=== PATIENT | female | born 1950 | race Caucasian/White ===

== ENCOUNTER 2020-01-01 11:53 | Inpatient (IN) ==
[2020-01-01 13:49] LABS: INR 1.15; PROTIME 15.3 Seconds (11.0-16.0)
[2020-01-01 13:50] LABS: PTT 30.5 Seconds (22.3-41.8)
[2020-01-01 13:51] LABS: BASO# 0.02 X1000 (0.0-0.2); BASO% 0.2 % (0.0-0.8); EOS# 0.01 X1000 (0.0-0.7); EOS% 0.1 % (0.0-10.0); HEMATOCRIT 27.9 % (37.0-47.0); HEMOGLOBIN 8.1 g/dL (12.0-16.0); IMM GRAN# 0.02 X1000 (0.0-0.04); IMM GRAN% 0.2 % (0.0-0.5); LYMPH# 1.62 X1000 (1.2-3.4); LYMPH% 20.1 % (20.5-51.1); MCH 22.7 PG (27-31); MCV 78.2 FL (81-99); MONO# 0.58 X1000 (0.11-0.59); MONO% 7.2 % (1.7-9.3); NEUT# 5.79 X1000 (1.4-6.5); NEUT% 72.2 % (42.2-75.2); PLT 422 X1000 (130-400); RBC 3.57 XMIL (4.2-5.4); RDW 15.3 % (11.5-14.5); WBC 8.04 X1000 (4.8-10.8)
[2020-01-01 13:53] LABS: OCCULT BLOOD 1 POSITIVE (NEGATIVE)
[2020-01-01 13:55] LABS: AGAP 15; ALBUMIN 4.7 g/dL (3.5-5.0); ALKALINE PHOSPHATASE 119 U/L (32-104); BUN 13 mg/dL (8-22); CALCIUM 9.7 mg/dL (8.8-10.2); CHLORIDE 99 mmol/L (98-107); COSMO 279; CREATININE 0.8 mg/dL (0.5-0.9); ESTIMATED GFR > 60; GLUCOSE 120 mg/dL (70-104); GOT 38 U/L (10-30); GPT 11 U/L (10-36); POTASSIUM 3.6 mmol/L (3.5-5.1); SODIUM 139 mmol/L (136-145); TCO2 25 mmol/L (25-35); TOTAL PROTEIN 7.6 g/dL (6.3-8.3)
--- NOTE | 2020-01-01 14:09 | PROVIDER DOCUMENTATION ---
This chart was entered by Christianne Warren Scribe, acting as scribe for Jen Lozano MD. HPI-Abdominal Pain/GI Problem - General Chief Complaint: GI Bleed Stated Complaint: LEG CRAMPS / BLACK STOOLS Time Seen by Provider: 01/01/20 12:18 Source: patient Allergies/Adverse Reactions: Patient Allergies Allergy/AdvReac Type Severity Reaction Status Date / Time No Known Allergies Allergy Verified 11/26/19 13:46 Home Medications: Home Medication List Medication Instructions Recorded Confirmed Last Taken Type Atorvastatin Calcium 20 mg PO DAILY 10/25/17 01/01/20 05/09/18 08:00 History Clopidogrel Bisulfate [Plavix] 75 mg PO DAILY 10/25/17 01/01/20 05/09/18 08:00 History Iron Carbonyl/Vit C/Vit B12/FA 1 ea PO DAILY #30 tab 08/26/18 01/01/20 Unknown Rx [Icar-C Plus] Polyethylene Glycol 3350 [Miralax] 17 gm PO DAILY #30 powd.pack 08/26/18 01/01/20 Unknown Rx Carvedilol [Coreg] 12.5 mg PO DAILY 09/27/18 01/01/20 Unknown History Atorvastatin Calcium [Lipitor] 20 mg PO DAILY 01/01/20 01/01/20 Unknown History Chlorthalidone 25 mg PO DAILY 01/01/20 01/01/20 Unknown History Dicyclomine [Bentyl] 10 mg PO DAILY 01/01/20 01/01/20 Unknown History Escitalopram Oxalate [Lexapro] 10 mg PO DAILY 01/01/20 01/01/20 Unknown History - History of Present Illness-ABD Nature of Presenting Problems: Pt is a 69 yowf with c/o of black stools for the last 6 months and severe leg muscle cramps. Pt states that the leg cramps are a 10 out of 10 on the pain scale. Pt states that she was seen in Dr. Iglesias's office this morning and was told to come to the ED for further tests. Pt states she had a colonoscopy and a GI endoscopy around 4 - 5 years ago and both were normal. Pt is alert, restless and nontoxic in appearance. Abdominal Pain Onset Location: reports: other (leg muscle cramps) Pain Radiation: reports: no radiation Quality of Pain: reports: cramping Severity in ED: reports: moderate Onset/Duration: reports: gradual, 24 hours ago Timing: reports: still present Activities at Onset: reports: light activity Modifying Factors: improves with: nothing (pt states she has taken nothing for the cramps) Associated Symptoms: reports: muscle aches. denies: constipation, diarrhea, shortness of breath, syncope, weakness Last BM: unsure Dark Stools Present?: reports: black Rectal Bleeding: reports: none Rectal Pain: reports: none Bruising or Bleeding Gums?: No Recently seen or treated by another doctor?: Yes (Dr. Iglesias, this am) Review of Systems - Adult - REVIEW OF SYSTEMS - ADULT Constitutional: denies: chills, fever Eyes: reports: no symptoms reported Ears, Nose, Mouth & Throat: reports: no symptoms reported Cardiovascular: denies: chest pain, syncope Respiratory: denies: cough, shortness of breath Gastrointestinal: reports: other (black stools). denies: abdominal pain, diarrhea Genitourinary: reports: no symptoms reported Musculoskeletal: reports: see HPI, frequent leg cramps, muscle aches Integumentary: reports: no symptoms reported Neurological: denies: dizziness/vertigo, headache/migraines Psychiatric: reports: no symptoms reported Endocrine: reports: no symptoms reported Hematologic/Lymphatic: reports: no symptoms reported Allergic/Immunologic: reports: no symptoms reported All Other Systems: Reviewed and Negative Past History - Adult - PAST MEDICAL HISTORY-ADULT Review of Records: reports: Old Records Reviewed, Nursing Assessment Review, Medications Reviewed, Social history reviewed & non-contributory. Major Childhood Illnesses: reports: denies history Cardiovascular: reports: HTN, hyperlipidemia Respiratory: reports: asthma Gastrointestinal: reports: denies history Obstetrical/Gynecological: reports: denies history Genitourinary: reports: denies history Musculoskeletal: reports: chronic pain, other (chronic pain from tumor). denies: fibromyalgia, other fractures Neurological: reports: cancer/tumor (spine) Psychiatric: reports: depression Endocrine/Immune: reports: denies history Other Conditions: reports: denies history - PRIOR SURGERIES/PROCEDURES Surgical/Procedure History: reports: reviewed, not pertinent, hysterectomy, orthopedic (extremity) (R knee), joint replacement (knee), breast (mastectomy), other (cystoscopy, stents placed femoral/carotid; spinal; morphine pump placement) - IMMUNIZATION STATUS Childhood Immunizations: See Nurse Assessment Flu Vaccine: See Nurse Assessment - FAMILY HISTORY Family History: reviewed, not pertinent - SOCIAL HISTORY Smoking: quit greater than 1 year Substance Use: alcohol Alcohol Use Frequency: occasionally Number of drinks per typical drinking period:: 2 drinks Living Situation: family Physical Exam-General - PHYSICAL EXAM-ADULT Initial Vital Signs Reviewed: Yes - CONSTITUTIONAL General Appearance: appears well, alert, mild distress, thin, anxious, other (restless) - EYES Eyes: PERRL/EOMI, pink conjunctivae - HEAD, EARS, NOSE, MOUTH & THROAT HENMT: normocephalic/atraumatic, moist mucous membranes - NECK Neck: non-tender, full range of motion, supple, normal inspection - RESPIRATORY Respiratory: chest non-tender, lungs clear, no pleuratic chest pain, no respiratory distress - CARDIOVASCULAR Cardiovascular: normal peripheral pulses, regular rate, rhythm, no edema - GASTROINTESTINAL (ABDOMEN) Abdominal Exam: normal bowel sounds, non tender, soft, other (morphine pump in place at LLQ) - MUSCULOSKELETAL Back Exam: normal inspection, no CVA tenderness, no vertebral tenderness Extremity: normal range of motion, normal gait, normal inspection, normal capillary refill, tenderness (bilaterally). negative: deformity, erythema, swelling - SKIN Integumentary: normal turgor, warm/dry, pallor - NEUROLOGIC Neurologic: grossly normal - PSYCHIATRIC Psych/Mental Status: normal thought content, normal thought process, oriented x 3, anxious Progress - PLAN OF CARE/RESULTS Progress/Plan/Lab Results: Vital Signs - 8 hr 01/01/20 11:57 Temperature 97.8 F Pulse Rate 87 Respiratory Rate 16 Blood Pressure 152/72 O2 Sat by Pulse Oximetry 99 Patient with Hgb to 8.1. She has been this low in the past but last H?h was from 2018 and this is a decrease from that. Her occult was grossly +. Will need admission for furhter workup. Spoke to DONNA Segundo for hospitalist who accepted patient for admission. Further orders to be placed by their team. Result Diagrams: 01/01/20 13:20 01/01/20 13:20 - CONSULTS/PCP/HOSPITALIST Notification #1 *Consult/PCP/Hospitalist*: DONNA Segundo for hosp Time Discussed: 14:23 Consult Disposition: Admit Departure - Departure Date of Disposition Decision: 01/01/20 Time of Disposition Decision: 14:22 DIAGNOSIS: GI bleed, Anemia, Occult blood positive stool Disposition: ADMITTED INPATIENT 09 Certified Medical Emergency: Emergent Condition: Stable Referrals and Follow-Ups: Lobo Iglesias DO [Primary Care Provider] - - Critical Care Note This patient required my direct & personal management of CC.: No Attestation - Physician/ ASIA Attestation Patient care was provided by Advanced Practice Provider:: No The physician spent face to face time with patient:: Yes Advanced Practice Provider documentation review:: Supervising physician onsite and consulted in the evaluation and care of this patient. The physician did have a face to face encounter with the patient. This chart was documented by the indicated scribe, (Christianne Warren, Carisa) and accurately reflects the services I performed and decisions made by me, Jen Lozano MD, as attested by the provider's signature.
[2020-01-01] MEDS ORDERED: ZOFRAN IV PRN (16:10)
[2020-01-01] MEDS ORDERED: NS 1,000 ML IV SCH (17:15)
[2020-01-01] MEDS ORDERED: REQUIP PO ONE (17:21)
--- NOTE | 2020-01-01 17:33 | HISTORY AND PHYSICAL ---
CHIEF COMPLAINT: Leg cramps. Black stools. HPI: This is a 69-year-old female with a history of chronic anemia, dark black stools for 6 months, hypertension, spinal cord tumor, who presents to the emergency room complaining of restless legs, leg cramps as well as black stools. She states that the black stools have been present for greater than 6 months. She denies any red stools, any diarrhea. She does take iron and states stools have been black since shortly after starting to take iron. She does report colonoscopy and EGD that was 4 or 5 years ago, both were stated normal. She also states that she has had leg cramps for 24 hours that she has taken no extra medications other than her prescribed home medications which is a morphine pump. She states that she was evaluated by Dr. Lobo Iglesias his office this morning for leg cramps and sent to the emergency room to be further evaluated. She does report a prior diagnosis of restless legs syndrome. PAST MEDICAL HISTORY: 1. Hypertension. 2. Hyperlipidemia. 3. Spinal cord tumor. 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 PAST SURGICAL HISTORY: Right common femoral artery stent, radical mastectomy followed by bilateral breast reconstruction, hysterectomy, back surgery, left pain pump. ALLERGIES: No known drug allergies. HOME MEDICATIONS: A list will be obtained by the nursing staff and once verified will review and restart as appropriate. REVIEW OF SYSTEMS: Discussed with the patient with pertinent positives stated in the HPI. She denied any syncope or dizziness, any chest pain or palpitations, any shortness of breath, cough, fever, chills, any night sweats, recent weight loss or weight gain, any hematuria, dysuria, frequency, urgency, any black or bloody vomitus or bloody stools. SOCIAL HISTORY: She is , has 2 children. She denies any alcohol or illicit drug use. ALLERGIES: No known drug allergies. FAMILY HISTORY: Mother with breast cancer at age 53. She has 1 sister that had colon cancer, 1 had small cell cancer. Her father at age 82 with bone cancer. REVIEW OF SYSTEMS: Discussed with patient with pertinent positives stated in the HPI. She denied any syncope or dizziness, any chest pain or palpitations, any headaches, any nausea, vomiting, diarrhea, constipation, black or bloody vomitus or stools, any hematuria, any bloody stools, any hematuria, dysuria, frequency, urgency. PHYSICAL EXAMINATION: GENERAL: This is a 69-year-old female who is lying on the stretcher in the emergency room in no distress. VITAL SIGNS: Blood pressure is 136/86 with heart rate of 87, respirations are 18, temperature is 97.8 degrees with room air saturations 97-99%. HEENT: Head is normocephalic, atraumatic. Mucous membranes are moist. NECK: Supple with trachea midline. CARDIOVASCULAR: Regular rate and rhythm. S1 and S2 appreciated. Calves are nontender bilateral. PULMONARY: Breath sounds are clear with no increased work of breathing noted. Chest rises and falls symmetric respiration. GASTROINTESTINAL: Abdomen is soft, nontender, nondistended with bowel sounds in all 4 quadrants. GENITOURINARY: No CVA or suprapubic tenderness. NEUROLOGIC: She is alert and oriented x3. SKIN: Warm and dry. LABS: WBC is 8 with hemoglobin 8.1, hematocrit 27.9 and platelets 422,000. Sodium 139, potassium 3.6, BUN 13, creatinine 0.8, glucose of 120. Stool for occult blood was positive. INR is 1.15. ASSESSMENT AND PLAN: 1. Melena. 2. Chronic anemia. 3. Occult positive stool. 4. Hypertension. 5. Hyperlipidemia. 6. Spinal cord tumor status post resecting. 7. Chronic pain on a morphine pain pump. PLAN: The patient will be admitted to the hospital. We will place her on telemetry. We will check a CBC and a CMP in the morning, identify home medications and continue as appropriate. We will give her full liquids at present. The patient will ultimately need to be transferred to [facility] to be evaluated by Gastroenterology. At present there are no beds. She will be admitted to the Med Surg floor with transfer orders to go to [facility] when a bed is available. Further treatments pending hospital course. Plan was discussed with Dr. Hart. Dictated by MEENAKSHI Ricks for Bassem Hart MD cc: MEENAKSHI Ricks MD
[2020-01-01] MEDS: COREG PO SCH (18:07)
[2020-01-01 23:04] LABS: FERRITIN 17 ng/mL (13-150)
--- NOTE | 2020-01-02 06:41 | HISTORY AND PHYSICAL ---
ADDENDUM: Patient seen and examined by myself. Full note dictated and discussed with nurse practitioner. Patient presented to the hospital with increased muscle aches and restless leg issues. Does note that she has had some blood in her stool as well. PLAN: We are going to admit her to the hospital, attempt to control her restless leg. We will follow her blood in her stool. Currently, her hemoglobin and hematocrit is stable. If it worsens, she will need endoscopy. cc: Bassem Hart MD
[2020-01-02 07:05] LABS: BASO# 0.04 X1000 (0.0-0.2); BASO% 0.7 % (0.0-0.8); EOS# 0.03 X1000 (0.0-0.7); EOS% 0.5 % (0.0-10.0); HEMATOCRIT 27.7 % (37.0-47.0); HEMOGLOBIN 8.1 g/dL (12.0-16.0); IMM GRAN# 0.02 X1000 (0.0-0.04); IMM GRAN% 0.4 % (0.0-0.5); LYMPH% 26.7 % (20.5-51.1); MCH 22.8 PG (27-31); MCHC 29.2 g/dL (33-37); MCV 77.8 FL (81-99); MONO# 0.54 X1000 (0.11-0.59); MONO% 9.6 % (1.7-9.3); MPV 8.2 FL (7.4-10.4); NEUT# 3.49 X1000 (1.4-6.5); NEUT% 62.1 % (42.2-75.2); PLT 393 X1000 (130-400); RBC 3.56 XMIL (4.2-5.4); RDW 15.4 % (11.5-14.5); WBC 5.62 X1000 (4.8-10.8)
[2020-01-02 07:46] LABS: AGAP 14; BUN 15 mg/dL (8-22); CALCIUM 9.2 mg/dL (8.8-10.2); CHLORIDE 100 mmol/L (98-107); COSMO 277; CREATININE 0.7 mg/dL (0.5-0.9); ESTIMATED GFR > 60; GLUCOSE 105 mg/dL (70-104); POTASSIUM 3.8 mmol/L (3.5-5.1); SODIUM 138 mmol/L (136-145); TCO2 25 mmol/L (25-35)
[2020-01-02] MEDS: COREG PO SCH (08:31)
[2020-01-02] MEDS ORDERED: NS 1,000 ML IV SCH (08:35)
[2020-01-02] MEDS ORDERED: LEXAPRO PO SCH (09:00)
[2020-01-02] MEDS ORDERED: HYGROTON PO SCH (09:00)
[2020-01-02] MEDS ORDERED: MIRALAX PO SCH (09:00)
[2020-01-02] MEDS ORDERED: ICAR-C PLUS PO SCH (09:00)
[2020-01-02] MEDS: REQUIP PO SCH ×2 (10:21→20:04)
[2020-01-02 13:52] VITALS: BP 155/84
--- NOTE | 2020-01-03 09:53 | DISCHARGE SUMMARY ---
ADMISSION DATE: 01/01/2020 DISCHARGE DATE: 01/02/2020 DISCHARGE DIAGNOSES: 1. Melena, resolved. 2. Chronic anemia, stable with hemoglobin and hematocrit 12.8 and 27. 3. Hypertension. 4. Hyperlipidemia. 5. Spinal cord tumor. 6. Chronic pain on morphine. 7. Restless legs, somewhat improved on Requip. CONSULTATIONS: None. PROCEDURES: None. BRIEF HOSPITAL COURSE: The patient is a 69-year-old pleasant female, who presented to the hospital with melanotic stools. She was admitted to the hospital overnight, did have some significant issues with restless leg while she was in the hospital. This was actually easily improved, although not completely controlled with Requip. Her hemoglobin and hematocrit is stable. Her diet was advanced from clear to full to GI soft without any further changes. She had no further melanotic stools while she was in the hospital. DISPOSITION: The patient can be discharged home. She will follow up outpatient Dr. Thompson or GI of choice. Discussed with her that she needs to avoid aspirin and NSAIDs, ibuprofen. Needs to eat small, more frequent meals, low residue, high-fiber. We discussed the importance that if she has any more bleeding that she would need to return immediately to the ER. However, given that we would not be able to perform a colonoscopy for another day or two, the patient desires to go home which I think is more than reasonable. We will discharge her home to follow her up. cc: Bassem Hart MD
== END 2020-01-02 20:09 | disposition home or self-care (01) | DRG 379 ==
LOC: P.MEDSURG 11:53 → P.ED 11:53
PROVIDERS: ATTEND Family Medicine

== ENCOUNTER 2020-01-03 14:03 | Inpatient (IN) ==
[2020-01-03] MEDS ORDERED: SODIUM CHLORIDE 0.9% INJ ONE ×2 (14:43→23:21)
[2020-01-03] MEDS ORDERED: PROTONIX IV ONE (14:43)
[2020-01-03] MEDS ORDERED: NS 1,000 ML IV ONE (14:43)
--- NOTE | 2020-01-03 14:47 | PROVIDER DOCUMENTATION ---
HPI-General Adult - General Chief Complaint: GI Bleed Stated Complaint: GI BLEED Time Seen by Provider: 01/03/20 14:36 Source: patient Allergies/Adverse Reactions: Patient Allergies Allergy/AdvReac Type Severity Reaction Status Date / Time No Known Allergies Allergy Verified 01/03/20 15:22 Home Medications: Home Medication List Medication Instructions Recorded Confirmed Last Taken Type Clopidogrel Bisulfate [Plavix] 75 mg PO DAILY 10/25/17 01/03/20 01/03/20 History Iron Carbonyl/Vit C/Vit B12/FA 1 ea PO DAILY #30 tab 08/26/18 01/03/20 Unknown Rx [Icar-C Plus] Carvedilol [Coreg] 12.5 mg PO BID 09/27/18 01/03/20 01/03/20 History Chlorthalidone 12.5 mg PO QHS 01/01/20 01/03/20 01/03/20 History Escitalopram Oxalate [Lexapro] 10 mg PO DAILY 01/01/20 01/03/20 01/03/20 History Ropinirole [Requip] 0.5 mg PO BID #60 tab 01/02/20 01/03/20 01/03/20 Rx Aspirin EC 1 tab PO DAILY 01/03/20 01/03/20 01/03/20 History Polyethylene Glycol 3350 [Miralax] 17 gm PO PRN PRN 01/03/20 01/03/20 01/02/20 History - History of Present Illness -Gen Adult Nature of Presenting Problems: Pt. is 69 yof that presents with c/o weakness and dark stools. Pt. was seen Wednesday at [facility] for the same and discharged with follow up to see her GI MD outpatient. Pt. reports she is worse and doesn't feel well. Location of Pain/Injury: reports: generalized. denies: none, head, face, mouth, neck, chest, upper extremity, hand(s), abdomen, back, pelvis, genitalia, lower extremity, feet, upper body, lower body, other Pain Radiation: reports: no radiation. denies: arm(s), back, buttocks, chest, epigastric, feet, groin, jaw, flank (L), legs (lower), LLQ, LUQ, neck, periumbilical, flank (R), RLQ, RUQ, shoulder(s), scapula, scrotal, sternal notch, suprapubic, legs (upper), urethral, vaginal, other Quality of Pain: reports: aching. denies: burning, pressure, tightness Severity: reports: mild. denies: moderate, severe Onset/Duration: reports: gradual, 1 week ago Timing: reports: still present. denies: improving, intermittent, getting worse Context/Activities at Onset: reports: none. denies: light activity, moderate activity, vigorous activity, recent emotional stress, recent physical stress, recent trauma history, possible bad food, cold exposure, eating, out of country travel, rest, sleep, sexual activity, other Modifying Factors: improves with: nothing Associated Symptoms: reports: weakness, other (GI bleeding). denies: denies symptoms, anxiety, arm pain, back/neck pain, chest pain, constipation, cough, diaphoresis, diarrhea, dizziness, EENT symptoms, fatigue, fever/chills, genitourinary problems, headaches, heartburn, joint pain, loss of appetite, malaise, muscle aches, sinus congestion/drainage, nausea, rash, seizure, shortness of breath, sensory/motor loss, pain with inspiration, swelling/mass in abdomen, syncope, vomiting, trouble walking Similar Symptoms Previously?: Yes Recently seen or treated by another doctor?: Yes Review of Systems - Adult - REVIEW OF SYSTEMS - ADULT Constitutional: reports: no symptoms reported Eyes: reports: no symptoms reported Ears, Nose, Mouth & Throat: reports: no symptoms reported Cardiovascular: reports: no symptoms reported Respiratory: reports: no symptoms reported Gastrointestinal: reports: see HPI, rectal bleeding. denies: hematemesis, frequent heartburn, vomiting Genitourinary: reports: no symptoms reported Musculoskeletal: reports: no symptoms reported Integumentary: reports: no symptoms reported Neurological: reports: no symptoms reported Psychiatric: reports: no symptoms reported Past History - Adult - PAST MEDICAL HISTORY-ADULT Review of Records: reports: Old Records Reviewed, Nursing Assessment Review, Medications Reviewed, Social history reviewed & non-contributory. Major Childhood Illnesses: reports: denies history Cardiovascular: reports: HTN, hyperlipidemia Respiratory: reports: asthma Gastrointestinal: reports: denies history Obstetrical/Gynecological: reports: denies history Genitourinary: reports: denies history Musculoskeletal: reports: chronic pain, other (chronic pain from tumor). denies: fibromyalgia, other fractures Neurological: reports: cancer/tumor (spine) Psychiatric: reports: depression Endocrine/Immune: reports: denies history Other Conditions: reports: denies history - PRIOR SURGERIES/PROCEDURES Surgical/Procedure History: reports: reviewed, not pertinent, hysterectomy, orthopedic (extremity) (R knee), joint replacement (knee), breast (mastectomy), other (cystoscopy, stents placed femoral/carotid; spinal; morphine pump placement) - IMMUNIZATION STATUS Childhood Immunizations: See Nurse Assessment Flu Vaccine: See Nurse Assessment - FAMILY HISTORY Family History: reviewed, not pertinent - SOCIAL HISTORY Smoking: denies Physical Exam-General - PHYSICAL EXAM-ADULT Initial Vital Signs Reviewed: Yes - CONSTITUTIONAL General Appearance: alert, moderate distress, thin. negative: anxious, obtunded, combative - EYES Eyes: PERRL/EOMI, pink conjunctivae - HEAD, EARS, NOSE, MOUTH & THROAT HENMT: normocephalic/atraumatic, moist mucous membranes - NECK Neck: non-tender, full range of motion, supple, normal inspection - RESPIRATORY Respiratory: lungs clear, normal breath sounds - CARDIOVASCULAR Cardiovascular: normal peripheral pulses, regular rate, rhythm - GASTROINTESTINAL (ABDOMEN) Abdominal Exam: normal bowel sounds, non tender, soft - GENITOURINARY Female Genitalia/Pelvic Exam: deferred Rectal Exam: deferred Hemoccult Exam: heme positive stool (Heme stool Positive on Wednesday at [facility]) - LYMPHATIC Lymphatic: no adenopathy - MUSCULOSKELETAL Back Exam: normal inspection, no CVA tenderness, no vertebral tenderness Extremity: normal range of motion, non-tender, normal inspection Peripheral Pulses: radial (R): 2+, radial (L): 2+ - SKIN Integumentary: normal color, normal turgor, warm/dry - NEUROLOGIC Neurologic: grossly normal, no motor/sensory deficits - PSYCHIATRIC Psych/Mental Status: normal mood/affect, normal thought content, normal thought process, oriented x 3. negative: anxious, paranoid, tearful Progress - PLAN OF CARE/RESULTS Progress/Plan/Lab Results: Vital Signs - 8 hr 01/03/20 14:19 Temperature 98.1 F Pulse Rate 65 Respiratory Rate 18 Blood Pressure 108/65 O2 Sat by Pulse Oximetry 100 Orders Category Date Time Status Saline Loc NOW Care 01/03/20 14:42 Ordered CHEST-PORTABLE [RAD] Stat Exams 01/03/20 14:42 Ordered CBC WITH ELECTRONIC DIFF [HEME] Stat Lab 01/03/20 14:42 Uncollected COMPREHENSIVE METABOLIC PANEL [CHEM] Stat Lab 01/03/20 14:42 Uncollected TYPE & SCREEN [BBK] Stat Lab 01/03/20 14:43 Uncollected URINALYSIS W/POSS RFLX CULT [URINALYSIS] Stat Lab 01/03/20 14:42 Uncollected 0.9% Sodium Chloride Inj [Ns] 1,000 ml Med 01/03/20 14:43 Ordered IV KVO Pantoprazole [Protonix] Med 01/03/20 14:43 Once 40 mg IV NOW ONE Sodium Chloride 0.9% Med 01/03/20 14:43 Once 10 ml INJ NOW ONE EKG [EKG] Stat Ther 01/03/20 14:42 Ordered Result Diagrams: 01/03/20 15:01 01/03/20 15:01 - CONSULTS/PCP/HOSPITALIST Notification #1 *Consult/PCP/Hospitalist*: Dr. Mallory Time Discussed: 18:02 Reason/Comments: Consult Consult Disposition: other (He will see her in the morning.) #2 Consult: Monica mckeon hospitilist Time Discussed: 18:02 Reason/Comments: Admission Consult Disposition: Will see in ED, Admit Departure - Departure Date of Disposition Decision: 01/03/20 Time of Disposition Decision: 17:58 DIAGNOSIS: GI bleed Qualifiers: GI bleed type/associated pathology: unspecified gastrointestinal hemorrhage type Qualified Code(s): K92.2 - Gastrointestinal hemorrhage, unspecified Anemia Qualifiers: Anemia type: unspecified type Qualified Code(s): D64.9 - Anemia, unspecified Disposition: ADMITTED INPATIENT 09 Certified Medical Emergency: Emergent Condition: Stable Referrals and Follow-Ups: Lobo Iglesias DO [Primary Care Provider] - - Critical Care Note This patient required my direct & personal management of CC.: No Attestation - Physician/ ASIA Attestation Patient care was provided by Advanced Practice Provider:: Yes Advanced Practice Provider:: Zhen Rowland Advanced Practice Provider documentation review:: The Mid-level provider documentation, treatment plan and medical decision making was reviewed by the physician who agrees with all treatment and medical decision making by the [facility]. The physician spent face to face time with patient:: No Advanced Practice Provider documentation review:: Supervising physician onsite and consulted in the evaluation and care of this patient. The physician did not have a face to face encounter with the patient.
[2020-01-03 15:26] LABS: BASO# 0.03 X1000 (0.0-0.2); BASO% 0.4 % (0.0-0.8); EOS# 0.04 X1000 (0.0-0.7); EOS% 0.6 % (0.0-10.0); HEMATOCRIT 28.1 % (37.0-47.0); HEMOGLOBIN 8.2 g/dL (12.0-16.0); IMM GRAN# 0.02 X1000 (0.0-0.04); IMM GRAN% 0.3 % (0.0-0.5); LYMPH# 1.49 X1000 (1.2-3.4); LYMPH% 22.3 % (20.5-51.1); MCH 23.1 PG (27-31); MCHC 29.2 g/dL (33-37); MCV 79.2 FL (81-99); MONO# 0.65 X1000 (0.11-0.59); MONO% 9.7 % (1.7-9.3); MPV 8.9 FL (7.4-10.4); NEUT# 4.45 X1000 (1.4-6.5); NEUT% 66.7 % (42.2-75.2); PLT 422 X1000 (130-400); RBC 3.55 XMIL (4.2-5.4); RDW 15.5 % (11.5-14.5); WBC 6.68 X1000 (4.8-10.8)
[2020-01-03 15:42] LABS: ALB/GLOB RATIO 1.4; ALBUMIN 4.2 g/dL (3.5-5.0); CALCIUM 9.5 mg/dL (8.8-10.2); CREATININE 1.2 mg/dL (0.5-0.9); POTASSIUM 3.6 mmol/L (3.5-5.1); TOTAL BILIRUBIN 0.38 mg/dL (0.20-1.00); TOTAL PROTEIN 7.1 g/dL (6.3-8.3)
--- NOTE | 2020-01-03 17:08 | Diag Imaging Result Doc PS360 ---
EXAM: CHEST-PORTABLE INDICATION: admit TECHNIQUE: One view COMPARISON: 11/26/2019 FINDINGS: The airspace infiltrate in the left midlung seen on the previous study appears to have resolved by plain radiograph. Otherwise, the lungs are grossly clear. There is no discrete pleural fluid collection or pneumothorax. The cardiomediastinal silhouette and central vasculature are grossly unremarkable. IMPRESSION: No evidence of acute pathology by plain radiograph. Electronically signed by Harshil Mcgarry 01/03/2020 5:06 PM
[2020-01-03 17:36] LABS: URINE SOURCE CATH
[2020-01-03 17:48] LABS: BILIRUBIN URINE NEGATIVE (NEGATIVE); BLOOD URINE TRACE (NEGATIVE); COLOR YELLOW; GLUCOSE URINE NEGATIVE (NEGATIVE); KETONE URINE NEGATIVE (NEGATIVE); LEUKOCYTES URINE NEGATIVE (NEGATIVE); NITRITE URINE NEGATIVE (NEGATIVE); PH URINE 6.5; PROTEIN URINE TRACE mg/dL (NEGATIVE); SP GRAVITY URINE 1.027; TURBIDITY URINE CLEAR (CLEAR); UROBILINOGEN URINE NORMAL (NORMAL)
[2020-01-03 17:49] LABS: UR EPITHELIAL CELLS <10 /HPF (<10); URINE BACTERIA NEGATIVE /HPF; URINE RBC <10 /HPF (<10); URINE WBC <10 /HPF (<10)
[2020-01-03] MEDS ORDERED: MIRALAX PO PRN (19:38)
--- NOTE | 2020-01-03 22:24 | HISTORY AND PHYSICAL ---
ADDENDUM: The patient has a history of CAD. She is on aspirin and Plavix, also iron. She is a Lobo Harris patient, but she is not one of his critical access hospital patients. In any case, she had persistent dizziness, weakness, and dark stools. Her hemoglobin and hematocrit is 8 and 28, which is stable from where it was previously. She was just discharged from [facility] with an hemoglobin and hematocrit that was stable. In any case, so she came back in and now she is being admitted. She has seen Dr. Walker before apparently. She will be admitted for GI bleed. We will put her on Protonix and we will continue to follow closely. We will keep her NPO after midnight and consult Dr. Walker. cc: Alex Miranda MD MTD
--- NOTE | 2020-01-03 22:29 | HISTORY AND PHYSICAL ---
CHIEF COMPLAINT: Black stools. HISTORY OF PRESENT ILLNESS: This is a 69-year-old female who was recently admitted on 01/01/2020 at [facility] and was discharged on 01/02/2020. She was supposed to follow up with GI as an outpatient, but the patient had increased weakness and increasing dark stools. She did not make it to see the GI doctor outpatient, so she came back in to the emergency room. Luckily her vital signs are stable, and her hemoglobin and hematocrit are actually higher than they were at the time of discharge, but we will place the patient on the medical floor for further evaluation and treatment . She does appear to be volume depleted. PAST MEDICAL HISTORY: Hypertension, hyperlipidemia, spinal cord tumor, GI bleed. PREVIOUS SURGICAL HISTORY: Right common femoral artery stent, radical mastectomy followed by breast reconstruction, hysterectomy, back surgery, left pain pump. ALLERGIES: No known drug allergies. SOCIAL HISTORY: with 2 children. No alcohol, tobacco or illicit drugs. FAMILY HISTORY: Mother with breast cancer at 53. One sister had colon cancer, and one had small cell lung cancer. Her father at age 82 with bone cancer. HOME MEDICATIONS: Aspirin 81 mg p.o. daily, Plavix 75 mg p.o. daily, carvedilol 12.5 mg p.o. b.i.d., chlorthalidone 12.5 p.o. at bedtime, Lexapro 10 mg p.o. daily, Icar-C Plus 1 p.o. daily, MiraLAX 17 grams p.o. p.r.n., ropinirole 0.5 mg p.o. b.i.d. REVIEW OF SYSTEMS: A 14-point review of systems was conducted with the patient. She has a complaint of occasional abdominal cramps, but she has not had any abdominal pain today. All other pertinent positives are listed above in the HPI. All other systems are reviewed and found to be negative PHYSICAL EXAMINATION: VITAL SIGNS: Temperature 98.1, pulse 65, respirations 15, blood pressure 124/64, oxygen saturation 98% on room air. GENERAL: A pleasant 69-year-old female lying in the ER stretcher. Answers all questions appropriately. She is alert and oriented x3. HEENT: Head is atraumatic, normocephalic. Pupils equal, round and reactive to light. Extraocular eye movement is intact. Sclerae are anicteric. Conjunctivae are pale. Oral mucosa is mildly dry. NECK: Supple. No JVD. No thyromegaly. Trachea is midline. No cervical lymphadenopathy. CARDIAC: S1 and S2 appreciated. No murmurs, gallops or rubs. LUNGS: Clear to auscultation. Bilaterally. No rhonchi, wheezes or rales. Symmetrical rise and fall with respirations. ABDOMEN: Soft, nondistended, nontender. Bowel sounds present in all 4 quadrants, normoactive. No pulsatile masses. No organomegaly. EXTREMITIES: No clubbing, cyanosis, or edema, 2+ pedal pulses bilaterally. GENITOURINARY: No bladder distention. Patient voids. Otherwise deferred. NEUROLOGIC: Alert and oriented x3. Cranial nerves II-XII grossly intact. DIAGNOSTIC DATA: Chest x-ray: No evidence of acute pathology. LABORATORY DATA: WBCs 6.68, hemoglobin 8.2, hematocrit 28.1, platelet count 422. Sodium 134, potassium 3.6, chloride 94, carbon dioxide 28, BUN 20, creatinine 1.2, glucose 119. Urine unremarkable. ASSESSMENT: 1. Gastrointestinal bleed. 2. Acute kidney injury. 3. Chronic anemia. 4. Hypertension, now normotensive. PLAN: 1. Admit patient to the medical floor. Will consult Dr. Walker. 2. Protonix 40 mg IV every 12 hours. 3. Normal saline at 60 mL/hr. 4. N.p.o. after midnight. 5. We will hold her aspirin and Plavix for now. 6. Further recommendations pending patient's clinical course. Dictated by MEENAKSHI Panda for Alex Miranda MD cc: MEENAKSHI Panda MD
[2020-01-03] MEDS ORDERED: ZOFRAN IV PRN (23:21)
[2020-01-03] MEDS: HYGROTON PO SCH (23:47)
[2020-01-03] MEDS: COREG PO SCH (23:47)
[2020-01-03] MEDS: REQUIP PO SCH (23:47)
[2020-01-04] MEDS: PROTONIX IV SCH ×3 (00:32→23:34)
[2020-01-04] MEDS: NS 1,000 ML IV SCH ×3 (04:46→17:43)
--- NOTE | 2020-01-04 06:00 | EKG Report ---
Test Performed on : 01/04/2020 04:20:24 AM Test Reason : admit Blood Pressure : / mmHG Vent. Rate : 064 BPM Atrial Rate : 064 BPM P-R Int : 220 ms QRS Dur : 090 ms QT Int : 420 ms P-R-T Axes : 041 004 035 degrees QTc Int : 433 ms Sinus rhythm. with 1st degree AV block. Possible Anterior infarct (cited on or before 04-MAY-2018) Abnormal ECG When compared with ECG of 12-MAY-2018 06:40, Nonspecific T wave abnormality no longer evident in Inferior leads Nonspecific T wave abnormality, improved in Lateral leads Confirmed by Jorge Turner MD ([id number]) on 01/04/2020 8:10:48 AM
[2020-01-04 06:53] LABS: BASO# 0.02 X1000 (0.0-0.2); BASO% 0.4 % (0.0-0.8); EOS# 0.15 X1000 (0.0-0.7); EOS% 2.8 % (0.0-10.0); HEMOGLOBIN 7.3 g/dL (12.0-16.0); LYMPH# 1.89 X1000 (1.2-3.4); LYMPH% 34.9 % (20.5-51.1); MCH 23.2 PG (27-31); MCHC 29.2 g/dL (33-37); MCV 79.6 FL (81-99); MONO# 0.62 X1000 (0.11-0.59); MONO% 11.4 % (1.7-9.3); MPV 8.5 FL (7.4-10.4); NEUT# 2.74 X1000 (1.4-6.5); NEUT% 50.5 % (42.2-75.2); PLT 354 X1000 (130-400); RBC 3.14 XMIL (4.2-5.4); RDW 15.4 % (11.5-14.5); WBC 5.42 X1000 (4.8-10.8)
[2020-01-04 07:15] LABS: CALCIUM 8.8 mg/dL (8.8-10.2)
[2020-01-04] MEDS ORDERED: DIPRIVAN 1% ONE (08:02)
[2020-01-04] MEDS ORDERED: XYLOCAINE-MPF 2% ONE (08:03)
[2020-01-04] MEDS ORDERED: ROBINUL ONE (08:03)
--- NOTE | 2020-01-04 09:08 | PROGRESS NOTE ---
DATE: 01/04/2020 SUBJECTIVE: The patient reports feeling better. No more episodes of dark stool this morning. She is on n.p.o. for an EGD today. OBJECTIVE: Vital Signs: Temperature is 98.1, heart rate 67, respiratory rate 15, blood pressure 102/49, O2 saturation 96% on room air. General examination: This is a 69-year-old female, lying in bed in no acute distress. Cardiovascular exam: S1, S2 heard. No murmurs, gallops, or rubs. Regular rate and rhythm. Respiratory exam: Clear bilaterally to auscultation. No work of breathing or using accessory muscles. Abdomen: Soft, nontender to palpation. Bowel sounds present. No organomegaly. Extremities: No clubbing, cyanosis or edema. Peripheral pulses present in both legs. Neurological exam: Patient is alert and oriented x3. Moves 4 extremities. LABORATORY DATA: Hemoglobin is this morning 7.3 and yesterday was 8.2 with a creatinine of 1.0 today. Normal BUN. ASSESSMENT AND PLAN: 1. Gastrointestinal bleeding. That is the reason why this patient was admitted to the hospital. At this point, she is awaiting esophagogastroduodenoscopy this morning. We will see what it shows. We will transfuse blood if hemoglobin is 7 or below. We will continue to monitor this patient closely. 2. Acute kidney injury. Creatinine is almost back to normal. I think it could be related to the gastrointestinal bleeding and dehydration. We will continue to monitor. We will continue with intravenous fluids. 3. Anemia of chronic disease. Stable. At this time, we will continue to monitor complete blood count daily. 4. Hypertension. The patient is now normotensive so, considering that she has gastrointestinal bleeding, we are not going to restart any blood pressure medication unless the blood pressure started getting higher than 160s or 170s. cc: Tyson Pedroza MD
--- NOTE | 2020-01-04 09:09 | ENDOSCOPY OPERATIVE NOTE ---
[facility] ENDOSCOPY OPERATIVE NOTE , PATIENT: Treasure Morrissey ADMISSION DATE: 01/04/2020 [facility]#: [id number] [facility] 1950 [id number] EGD PROCEDURE REPORT PROCEDURE DATE: 01/04/2020 SURGEON: Hugh Walker MD STATUS: inpatient CURTAIN INSPECTOR: Leonial Rivera and Monica Vickers PREOPERATIVE DIAGNOSIS: The patient is a 69 yr old female here for an EGD due to anemia secondary to chronic blood loss and History of melena.. PROCEDURE PERFORMED: EGD w/ biopsy MEDICATIONS: Per Anesthesia TOPICAL ANESTHETIC: none CONSENT: The patient understands the risks and benefits of the procedure and understands that these r isks include, but are not limited to: sedation, allergic reaction, infection, perforation and/or bleeding. Alternative means of evaluation and treatment include, among others: physical exam, x-rays, and/or surgical intervention. The patient elects to proceed with this endoscopic procedure. HISORY AND PHYSICAL: 01/04/2020 DESCRIPTION OF PROCEDURE: During intra-op preparation period all mechanical and medical equipment was checked for proper function. Hand hygiene and appropriate measures for infection prevention was taken. After the risks, benefits and alternatives of the procedure were thoroughly explained, Informed consent was verified, confirmed and timeout was successfully executed by the treatment team. The patient was anesthetized with topical anesthesia and the [id number] ([id number]) endoscope was introduced through the mouth and advanced to the second portion of the duoden um. Retroflexion was performed in the stomach and revealed no abnormalities. The gastroscope was then slowly withdraw n and removed. ESOPHAGUS: The mucosa of the esophagus appeared normal. STOMACH: Moderate gastritis (inflammation) was found in the gastric antrum. Multiple biopsies were p erformed using cold forceps. Sample sent for histology. The stomach otherwise appeared normal. DUODENUM: The duodenal mucosa showed no abnormalities. SPECIMENS REMOVED: No ADVERSE EVENTS: There were no complications. POSTOPERATIVE DIAGNOSIS: 1. The mucosa of the esophagus appeared normal 2. Gastritis (inflammation) was found in the gastric antrum; multiple biopsies were performed 3. The stomach otherwise appeared normal 4. The duodenal mucosa showed no abnormalities RECOMMENDATIONS: 1. Omeprazole (Prilosec) 40mg PO daily 2. Avoid non-steroid anti-inflammatory drugs 3. Resume pre-procedure medications 4. Follow-up biopsy results in 2 weeks 5. Follow up with GI Doctor in 2 months 6. Transfer to floor REPEAT EXAM: Hugh Walker MD eSigned: Hugh Walker MD 01/04/2020 9:08 AM cc: Lobo Iglesias DO PATIENT NAME: Ghanshyam Treasure L MR#: [id number]
[2020-01-04] MEDS: ICAR-C PLUS PO SCH (10:41)
[2020-01-04] MEDS: REQUIP PO SCH ×2 (10:41→22:01)
[2020-01-04] MEDS: LEXAPRO PO SCH (10:42)
[2020-01-04] MEDS: COREG PO SCH ×2 (10:42→22:01)
--- NOTE | 2020-01-04 15:07 | GASTROENTEROLOGY CONSULTATION ---
DATE: 01/04/2020 REASON FOR CONSULTATION: Melena, anemia. HISTORY OF PRESENT ILLNESS: This is a 69-year-old female, who was recently admitted several days ago at [facility]. She was discharged and recommended to follow up with GI. We have seen the patient in the past. She was last seen in our office in May 2019. At that time, she had a colonoscopy in March 2019. Indications for diarrhea and weight loss. She had findings of several polyps in the hepatic flexure. Pathology showed tubular adenomatous polyp and hyperplastic polyp. No evidence of colitis or microscopic colitis. No histopathologic abnormalities were seen under biopsy. She was recommended to start MiraLAX for possible overflow diarrhea related to constipation. Patient reports that she has noticed dark stools over the last 2 weeks. She has had some dizziness. No reported chest pain or shortness of breath. No reported abdominal pain. She does have a morphine pain pump in the lower abdomen for chronic back pain. PAST MEDICAL HISTORY: Hypertension, hyperlipidemia, history of spinal cord tumor, history of breast cancer. PAST SURGICAL HISTORY: Right common femoral artery stent, mastectomy and breast reconstruction, hysterectomy, back surgery, left pain pump. ALLERGIES: No known drug allergies. HOME MEDICATIONS: 1. Aspirin daily. 2. Coreg 12.5 mg twice a day. 3. Chlorthalidone 12.5 mg every night. 4. Plavix 75 mg daily. 5. Lexapro 10 mg daily. 6. Iron +1 daily. 7. MiraLAX as needed. 8. Requip 0.5 mg twice a day. SOCIAL HISTORY: She is . She has 2 children. No reported tobacco or alcohol use. REVIEW OF SYSTEMS: Per history of present illness. PHYSICAL EXAMINATION: Vital Signs: Temperature 98.1 degrees, pulse 70, respirations 18, blood pressure 100/51. General: Patient was awake and alert. No acute distress. HEENT: Normocephalic, atraumatic. Pupils equal, round, reactive to light. Sclerae nonicteric. Respiratory: Lung sounds essentially clear. Cardiovascular: Regular rate and rhythm. Abdomen: Soft, nontender. She does have pain pump to the left lower abdomen. DIAGNOSTIC RESULTS: Laboratory: Hematology: WBC 5.42, hemoglobin 7.3, hematocrit 25.0, MCV 79.6, platelets 354. Chemistry: Sodium 135, potassium 4.0, chloride 97, CO2 of 27. BUN 18, creatinine 1.0 glucose 102, calcium 8.0. My evaluation was done prior to her EGD today. X-rays: EGD report was reviewed with Dr. Walker. Esophagus was normal. She had moderate gastritis and multiple biopsies were taken. ASSESSMENT AND PLAN: 1. Anemia. 2. Gastritis. 3. Melena. 4. History of colon polyps with last colonoscopy in March of 2019. Continue PPI. She has had a colonoscopy within the last year. She will most likely need a small- bowel follow-through for further evaluation, but we will treat her gastritis first, and follow up with her in the office after discharge. Avoid NSAIDs. Again continue PPI 40 mg daily. Patient had EGD procedure today by Dr. Walker. Thank you for this consultation. Dictated by MEENAKSHI Barone for Hugh Walker MD cc: MEENAKSHI Guerrero MD
[2020-01-04] MEDS: HYGROTON PO SCH (22:00)
[2020-01-05 06:50] LABS: BASO# 0.04 X1000 (0.0-0.2); BASO% 0.9 % (0.0-0.8); EOS# 0.18 X1000 (0.0-0.7); EOS% 4.1 % (0.0-10.0); HEMATOCRIT 24.7 % (37.0-47.0); HEMOGLOBIN 7.2 g/dL (12.0-16.0); LYMPH# 1.51 X1000 (1.2-3.4); LYMPH% 34.2 % (20.5-51.1); MCH 23.2 PG (27-31); MCHC 29.1 g/dL (33-37); MCV 79.4 FL (81-99); MONO% 15.9 % (1.7-9.3); MPV 8.4 FL (7.4-10.4); NEUT# 1.98 X1000 (1.4-6.5); NEUT% 44.9 % (42.2-75.2); PLT 340 X1000 (130-400); RBC 3.11 XMIL (4.2-5.4); RDW 15.5 % (11.5-14.5); WBC 4.41 X1000 (4.8-10.8)
[2020-01-05 07:19] LABS: AGAP 9; BUN 12 mg/dL (8-22); CALCIUM 8.9 mg/dL (8.8-10.2); CHLORIDE 101 mmol/L (98-107); COSMO 277; CREATININE 0.9 mg/dL (0.5-0.9); ESTIMATED GFR > 60; GLUCOSE 99 mg/dL (70-104); POTASSIUM 3.6 mmol/L (3.5-5.1); SODIUM 139 mmol/L (136-145); TCO2 29 mmol/L (25-35)
[2020-01-05] MEDS: ICAR-C PLUS PO SCH (08:32)
[2020-01-05] MEDS: LEXAPRO PO SCH (08:32)
[2020-01-05] MEDS: COREG PO SCH ×2 (08:33→20:23)
[2020-01-05] MEDS: REQUIP PO SCH ×2 (08:33→20:23)
[2020-01-05] MEDS: SODIUM CHLORIDE 0.9% 10 ML ONE (13:28)
[2020-01-05] MEDS: PROTONIX IV SCH ×2 (13:29→23:49)
[2020-01-05] MEDS ORDERED: CITRATE OF MAGNESIA PO ONE (14:00)
--- NOTE | 2020-01-05 15:56 | PROGRESS NOTE ---
DATE: 01/05/2020 I went to see this patient in the morning and she was stable. I decided to discharge this patient. Daughter expressed her concerns about the patient feeling weak. Hemoglobin has been 7.2 this morning. There has been communication between Dr. Walker and the patient and family. It has been decided that this patient is going to stay over the weekend. She is going to receive 2 units of blood. They are going to perform a small bowel series to rule out any possible bleeding on this patient. In that regard, we are going to cancel this discharge and we will continue to monitor this patient closely. cc: Tyson Pedroza MD
--- NOTE | 2020-01-05 19:59 | GASTROENTEROLOGY PROGRESS NOTE ---
DATE: 01/05/2020 SUBJECTIVE: The patient reports being weak and fatigued. She has had a drop in her hemoglobin and hematocrit today. By intake and output report, there have been no signs of active bleeding. She had an EGD on 01/04/2020 that showed normal esophagus, gastritis, and normal duodenum. She was instructed to continue her PPI 40 mg daily, and avoid NSAIDs. Pathology is pending. OBJECTIVE: Vital Signs: Temperature 98.4 degrees, pulse 73, respirations 18, blood pressure 117/54. General: Patient is awake and alert, in no acute distress. She is complaining of weakness in her legs. Her daughter states she had some stool leakage. We have done a colonoscopy in March 2019. Indications were for diarrhea and weight loss, and findings showed polyps in the hepatic flexure, with pathology showing tubular adenomatous polyps and hyperplastic polyp. There was no evidence of colitis or microscopic colitis, and pathology showed no histopathologic abnormalities. At that time, she was recommended to take MiraLAX for possible overflow diarrhea related to constipation. OBJECTIVE: Vital signs: Temperature 98.4 degrees, pulse 73, respirations 18, blood pressure 117/54. General: The patient is awake and alert, in no acute distress. Her daughter is at the bedside. Abdomen: Soft, nontender. Positive bowel sounds. LABORATORY: Hematology: WBC 4.41, hemoglobin 7.2, hematocrit 24.7, MCV 79.4, MCH 23.2, platelet 340,000. Chemistry: Sodium 139, potassium 3.6, chloride 101, CO2 29, BUN 12, creatinine 0.9, glucose 99, calcium 8.9, total bilirubin 0.38, AST 31, ALT 10, alkaline phosphatase 97. As noted, EGD showed gastritis, otherwise normal esophagus and normal duodenum. Pathology is pending. ASSESSMENT: 1. Anemia. 2. Recent melena. 3. Esophagogastroduodenoscopy findings of gastritis. 4. History of colon polyps with last colonoscopy in March 2019, with no evidence of colitis. PLAN: Continue proton pump inhibitor. She has had esophagogastroduodenoscopy and colonoscopy now within the last year. We will proceed with a small-bowel follow-through for further workup. Avoid nonsteroidal anti-inflammatory medications. Unfortunately, her Plavix could cause some slow bleeding in the gastrointestinal tract. We will transfuse 2 units of packed red blood cells today. Further plans will be made according to findings. We will continue to monitor for signs of active bleeding and monitor hemoglobin and hematocrit. I have discussed this case with Dr. Walker. The patient was also seen by Dr. Walker. At that time, we went back in to speak to the daughter and she was no longer in the room. I believe she had an appointment to go to. Further plans will be made as needed. I will try to call the daughter on the phone. Dictated by MEENAKSHI Barone for Hugh Walker MD cc: MEENAKSHI Guerrero MD
[2020-01-05] MEDS: HYGROTON PO SCH (20:23)
[2020-01-06 07:43] LABS: BASO# 0.03 X1000 (0.0-0.2); BASO% 0.6 % (0.0-0.8); EOS# 0.31 X1000 (0.0-0.7); EOS% 6.7 % (0.0-10.0); HEMOGLOBIN 10.6 g/dL (12.0-16.0); LYMPH# 1.23 X1000 (1.2-3.4); LYMPH% 26.5 % (20.5-51.1); MCH 25.1 PG (27-31); MCHC 31.2 g/dL (33-37); MCV 80.6 FL (81-99); MONO# 0.62 X1000 (0.11-0.59); MONO% 13.3 % (1.7-9.3); MPV 8.9 FL (7.4-10.4); NEUT# 2.46 X1000 (1.4-6.5); NEUT% 52.9 % (42.2-75.2); PLT 350 X1000 (130-400); RBC 4.22 XMIL (4.2-5.4); RDW 16.1 % (11.5-14.5); WBC 4.65 X1000 (4.8-10.8)
[2020-01-06 08:25] LABS: POTASSIUM 3.3 mmol/L (3.5-5.1)
--- NOTE | 2020-01-06 10:15 | DISCHARGE SUMMARY ---
ADMISSION DATE: 01/03/2020 DISCHARGE DATE: 01/05/2020 PRIMARY CARE PROVIDER: Dr. Lobo Iglesias. CONSULTATION: Dr. Walker. PERTINENT PROCEDURE: EGD with biopsy. DISCHARGE DIAGNOSES: 1. Gastritis. The patient will start Prilosec daily. The patient will avoid nonsteroidal anti- inflammatory drugs. Follow up with her biopsy results in 2 weeks, as well as her Gastroenterology doctor in 2 months. 2. Gastrointestinal bleed. Hemoglobin and hematocrit stable. She did not require any transfusions. 3. Acute kidney injury, resolved. 4. Chronic anemia, stable. 5. Hypertension, stable. HOSPITAL COURSE: Briefly, Ms. Morrissey is a 69-year-old female, who was recently admitted on 01/01/2020 at [facility] and discharged on 01/02/2020. She was supposed to follow up with GI as an outpatient, but she had increased weakness and dark stools. She did not make an appointment to see the GI doctor as an outpatient, so she came back to the ED. Her vital signs were stable. Her hemoglobin and hematocrit were higher than the time of her discharge. She was placed on the medical floor. She was evaluated by Gastroenterology. The next day she underwent an endoscopy that showed gastritis. She was started on a proton pump inhibitor. She has been educated to avoid NSAIDs. She will resume her preprocedure medications. Follow up on her biopsy results in 2 weeks, as well as her GI doctor in 2 months. Her hemoglobin and hematocrit and hemodynamics have remained stable. She will be discharged home. VITAL SIGNS: At time of her discharge, temperature is 98 degrees, heart rate 68, respirations 16, blood pressure 135/67, O2 is 98% on room air. DISCHARGE DIET: Healthy heart. DISCHARGE MEDICATIONS: 1. Chlorthalidone 12.5 mg p.o. at bedtime. 2. Aspirin 81 mg p.o. daily. 3. Coreg 12.5 mg p.o. b.i.d. 4. Lexapro 10 mg p.o. daily. 5. MiraLAX 17 g p.o. p.r.n. 6. Plavix 75 mg p.o. daily. 7. Carafate 1 g p.o. t.i.d. 8. Icar C one tab p.o. b.i.d. 9. Protonix 40 mg p.o. daily. 10. Requip 0.5 mg p.o. b.i.d. FOLLOWUP: Ms. Morrissey is being discharged back home with self care. She is to follow up for biopsy results in 2 weeks, as well as her GI doctor in 2 months. She can follow up with her primary care physician in the next 7 to 10 days. She can return to the ED or call 911 for any worsening of symptoms. Dictated by MEENAKSHI Bundy for Tyson Pedroza MD Addendum: Patient seen and examined by myself. Agree with MEENAKSHI note. It reflects my assessment and plan. Please see note from today regarding disposition for this patient. She is staying in the hospital as per GI recommendation. cc: MD Lobo Mora DO Khurshid Yousuf, MD MTDD
--- NOTE | 2020-01-06 10:33 | Diag Imaging Result Doc PS360 ---
EXAM: SMALL BOWEL SERIES ONLY HISTORY: anemia TECHNIQUE: Small bowel series COMPARISON: None. FINDINGS: Cooker Meal: No bowel obstruction. No organomegaly. Barium was given with easy passage through the stomach into the duodenum. Normal mucosal pattern. No small bowel stricture. No obstruction. Transit through the small bowel into the colon at approximately one hour. IMPRESSION: Normal small bowel series. Electronically signed by Parker Butler 01/06/2020 10:30 AM
[2020-01-06] MEDS: COREG PO SCH ×2 (11:02→21:42)
[2020-01-06] MEDS: ICAR-C PLUS PO SCH (11:02)
[2020-01-06] MEDS: LEXAPRO PO SCH (11:02)
[2020-01-06] MEDS: PROTONIX IV SCH ×2 (11:02→23:21)
[2020-01-06] MEDS: REQUIP PO SCH ×2 (11:02→21:43)
[2020-01-06] MEDS: SODIUM CHLORIDE 0.9% 10 ML ONE (11:03)
--- NOTE | 2020-01-06 14:25 | PROGRESS NOTE ---
DATE: 01/06/2020 SUBJECTIVE: The patient reports feeling fine. No signs of GI bleeding, like hematemesis or melena. She reports feeling okay. OBJECTIVE: Vital Signs: Temperature 98.7 degrees, heart rate 70, respiratory rate 18, blood pressure 154/79, O2 saturation 98 percent on room air. General examination: This is a 69-year- old female lying in bed in no acute distress. Cardiovascular exam: S1, S2 heard. No murmurs, gallops, or rubs. Regular rate and rhythm. Respiratory exam: Clear bilaterally to auscultation. No work of breathing or using accessory muscles. Abdomen: Soft, nontender to palpation. Bowel sounds present. No organomegaly. Extremities: No clubbing, cyanosis, or edema. Peripheral pulses present in both legs. Neurological exam: Patient is alert and oriented x3. Moves 4 extremities. LABORATORY DATA: Hemoglobin this morning is 10.6 with hematocrit 34.0 and white cell count 4.65. ASSESSMENT AND PLAN: 1. Gastrointestinal bleeding. Patient has not had any signs of bleeding for the last 2 days. The patient got transfused 2 units of blood yesterday; her hemoglobin today is 10.6. Gastroenterology plans to do a small bowel series to make sure there is no further bleeding going on. We will keep this patient in the hospital, checking complete blood count daily. I will discharge once she is cleared by Gastroenterology. 2. Acute kidney injury. Creatinine from yesterday is completely normal. The results from today is not available yet. 3. Anemia of chronic disease, stable, most likely related to acute blood loss, but after 2 units of blood transfused yesterday it is not much better. It is 10.6 today. 4. Hypertension. The patient's blood pressure is okay with systolic blood pressure in the range of between 120 to 150s. We have restarted Coreg on this patient. We will continue with the same management. 5. Disposition: We will continue to monitor this patient closely. We will keep this patient in the hospital until cleared by Gastroenterology. cc: Tyson Pedroza MD
[2020-01-06] MEDS: HYGROTON PO SCH (21:41)
[2020-01-06] MEDS: NS 1,000 ML IV SCH (23:22)
[2020-01-07] MEDS ORDERED: KLOR-CON PO ONE (05:41)
[2020-01-07 07:22] LABS: BASO# 0.02 X1000 (0.0-0.2); BASO% 0.3 % (0.0-0.8); EOS# 0.15 X1000 (0.0-0.7); EOS% 2.2 % (0.0-10.0); HEMATOCRIT 35.1 % (37.0-47.0); HEMOGLOBIN 10.8 g/dL (12.0-16.0); LYMPH# 1.69 X1000 (1.2-3.4); LYMPH% 24.6 % (20.5-51.1); MCH 24.8 PG (27-31); MCHC 30.8 g/dL (33-37); MCV 80.7 FL (81-99); MONO# 0.86 X1000 (0.11-0.59); MONO% 12.5 % (1.7-9.3); MPV 8.8 FL (7.4-10.4); NEUT# 4.15 X1000 (1.4-6.5); NEUT% 60.4 % (42.2-75.2); PLT 336 X1000 (130-400); RBC 4.35 XMIL (4.2-5.4); RDW 17.2 % (11.5-14.5); WBC 6.87 X1000 (4.8-10.8)
[2020-01-07 07:58] LABS: AGAP 10; BUN 9 mg/dL (8-22); CALCIUM 9.2 mg/dL (8.8-10.2); CHLORIDE 95 mmol/L (98-107); COSMO 268; CREATININE 0.9 mg/dL (0.5-0.9); ESTIMATED GFR > 60; GLUCOSE 126 mg/dL (70-104); POTASSIUM 3.5 mmol/L (3.5-5.1); SODIUM 134 mmol/L (136-145); TCO2 29 mmol/L (25-35)
--- NOTE | 2020-01-07 08:32 | PROGRESS NOTE ---
DATE: 01/07/2020 SUBJECTIVE: The patient reports feeling fine this morning. No signs of gastrointestinal bleeding, like hematemesis or melena. She reports feeling fine. No acute issues noted as per nursing staff overnight. OBJECTIVE: Vital Signs: Temperature 99.7 degrees, heart rate 68, respiratory rate 14, blood pressure 125/59, O2 saturation 95% on room air. General: This is a 69-year-old, female, lying in bed in no acute distress. Cardiovascular: S1, S2 heard. No murmurs, gallops, or rubs. Regular rate and rhythm. Respiratory: Clear bilaterally to auscultation. No work of breathing or using accessory muscles. Abdomen: Soft. Nontender to palpation. Bowel sounds present. No organomegaly. Extremities: No clubbing, cyanosis, or edema. Peripheral pulses present in both legs. Neurological: Alert and oriented x3. Moves all 4 extremities. LABORATORY DATA: Pending at the time of my dictation. ASSESSMENT AND PLAN: 1. Gastrointestinal bleeding. The patient, during the last 3 days, has not had any more signs of bleeding. Two days ago, she got transfused 2 units of blood. Hemoglobin from yesterday was 10.7. Upper endoscopy did not reveal any source of bleeding, and yesterday, Gastroenterology ordered a small bowel series, which returned normal. At this point, we do not have results of labs today. My plan is to keep this patient 1 more day over the weekend to check tomorrow hemoglobin. We plan to check with Dr. Walker tomorrow if this patient can be discharged. If that is the case, will proceed with discharge. 2. Acute kidney injury. Resolved. 3. Anemia of chronic disease. Hemoglobin continues to be stable. No signs of overt bleeding. 4. Hypertension. Blood pressure is under control. Will continue with the same management. 5. Disposition. Will continue to monitor this patient closely. We have called Physical Therapy. Will see what they have to say. cc: Tyson Pedroza MD
[2020-01-07] MEDS: ICAR-C PLUS PO SCH (09:14)
[2020-01-07] MEDS: LEXAPRO PO SCH (09:14)
[2020-01-07] MEDS: REQUIP PO SCH ×2 (09:15→20:03)
[2020-01-07] MEDS: COREG PO SCH ×2 (09:15→20:03)
[2020-01-07] MEDS: NS 1,000 ML IV SCH (12:25)
[2020-01-07] MEDS: PROTONIX IV SCH ×2 (12:25→20:02)
[2020-01-07] MEDS: HYGROTON PO SCH (20:03)
[2020-01-08] MEDS: PROTONIX IV SCH (00:17)
[2020-01-08 07:27] LABS: BASO# 0.02 X1000 (0.0-0.2); BASO% 0.3 % (0.0-0.8); EOS# 0.27 X1000 (0.0-0.7); EOS% 4.5 % (0.0-10.0); HEMATOCRIT 31.8 % (37.0-47.0); HEMOGLOBIN 10.1 g/dL (12.0-16.0); IMM GRAN# 0.02 X1000 (0.0-0.04); IMM GRAN% 0.3 % (0.0-0.5); LYMPH% 30.1 % (20.5-51.1); MCHC 31.8 g/dL (33-37); MCV 81.7 FL (81-99); MONO# 0.98 X1000 (0.11-0.59); MONO% 16.4 % (1.7-9.3); MPV 9.6 FL (7.4-10.4); NEUT% 48.4 % (42.2-75.2); PLT 301 X1000 (130-400); RBC 3.89 XMIL (4.2-5.4); RDW 18.6 % (11.5-14.5); WBC 5.99 X1000 (4.8-10.8)
[2020-01-08 08:19] VITALS: BP 144/74
[2020-01-08] MEDS: REQUIP PO SCH (09:00)
[2020-01-08] MEDS: ICAR-C PLUS PO SCH (09:00)
[2020-01-08] MEDS: COREG PO SCH (09:00)
[2020-01-08] MEDS: LEXAPRO PO SCH (09:00)
[2020-01-08 09:24] LABS: AGAP 16; BUN 12 mg/dL (8-22); CALCIUM 8.7 mg/dL (8.8-10.2); CHLORIDE 97 mmol/L (98-107); COSMO 269; CREATININE 0.9 mg/dL (0.5-0.9); GLUCOSE 89 mg/dL (70-104); POTASSIUM 4.3 mmol/L (3.5-5.1); SODIUM 135 mmol/L (136-145); TCO2 22 mmol/L (25-35)
--- NOTE | 2020-01-09 17:24 | DISCHARGE SUMMARY ---
ADMISSION DATE: 01/03/2020 DISCHARGE DATE: 01/08/2020 ADDENDUM REPORT: Please refer to discharge summary dictated on 01/05/2020. The patient was supposed to be discharged on January 05. But there was a concern from the daughter that this patient could be still bleeding, so we performed a small bowel x-ray according to Dr. Walker's recommendation which was basically normal, so we decided to monitor this patient until Wednesday and her hemoglobin so far in the last 3 days of her hospitalization has remained 10.6, 10.8, and 10.1, actually as per Dr. Walker's recommendation she received 2 units of blood now patient is feeling much better. Not fatigued. She prefers to go home. She agreed to have home health at discharge. She is going to be discharged in stable condition. We are not going to make any changes to her medication that has been noted in the discharge summary done on 01/05/2020. cc: Tyson Pedroza MD
== END 2020-01-08 09:19 | disposition home health service (06) | DRG 378 ==
LOC: ED 14:03 → 4N 21:24 → SUATTDRO 21:24
PROVIDERS: ATTEND Internal Medicine